=== PATIENT | female | born 2000 | race Caucasian/White ===

== ENCOUNTER 2021-08-20 15:46 | Emergency (ER) | payer OTHER ==
[~2021-08-20] VITALS: Ht 160 cm; Wt 50.4 kg
[2021-08-20] MEDS ORDERED: LAMOTRIGINE100 MG PO (16:10)
[2021-08-20] MEDS ORDERED: HUMIRA (16:10)
[2021-08-20] MEDS ORDERED: ACETAMINOPHEN 325 MG TAB PO ONE (20:45)
[2021-08-20] MEDS ORDERED: ACETAMINOPHEN 325 MG TAB ONE (20:57)
== END 2021-08-20 21:13 | disposition home or self-care (01) ==
LOC: FSED 16:18
DX: O20.0 Threatened abortion (principal); R10.2 Pelvic and perineal pain; F31.9 Bipolar disorder, unspecified; L40.9 Psoriasis, unspecified
CPT/HCPCS: 36415; 76801; 80053; 81003; 81025; 84702; 85025; 86900; 99284